=== PATIENT | female | born 1945 | race Hispanic/Latino ===

== ENCOUNTER 2018-06-28 23:03 | Emergency (ER) | payer OTHER ==
[2018-06-28] MEDS ORDERED: LIDOCAINE HCL MPF 1% 5ML VIAL ONE (23:24)
== END 2018-06-28 23:51 | disposition home or self-care (01) ==
LOC: EDH 23:03
DX: L60.0 Ingrowing nail (principal); Z98.890 Other specified postprocedural states
CPT/HCPCS: 11730; 99283; J3490; 11750